=== PATIENT | female | born 1975 | race Caucasian/White ===

== ENCOUNTER 2022-05-28 04:22 | Day surgery (SDC) | payer OTHER ==
[2022-05-23 15:13] VITALS: BMI 36.6
[2022-05-28] MEDS ORDERED: LIDOCAINE HCL 1%, 10 MG/ML (20ML VIAL) INF ONE ×2 (10:57)
[2022-05-28] MEDS ORDERED: ceFAZolin 2 GRAM PREMIX BAG IVPB ONE (10:57)
[2022-05-28] MEDS ORDERED: ACETAMINOPHEN 325 MG TABLET (FP) PO PRN (11:03)
[2022-05-28] MEDS ORDERED: ONDANSETRON 4 MG/2 ML VIAL IVPUSH PRN (11:03)
[2022-05-28] MEDS ORDERED: oxyCODONE HCL 5 MG TABLET PO PRN (11:03)
[2022-05-28] MEDS ORDERED: PROPOFOL 60 ML ONE (11:05)
[2022-05-28] MEDS ORDERED: MIDAZOLAM HCL 2 MG/2 ML SINGLE DOSE VIAL ONE (11:05)
[2022-05-28] MEDS ORDERED: LACTATED RINGERS SOLUTION 1,000 ML IV SCH (11:15)
[2022-05-28] MEDS ORDERED: DEXAMETHASONE SOD PHOSPHATE 4 MG/1 ML VIAL ONE (11:17)
[2022-05-28] MEDS ORDERED: KETOROLAC TROMETHAMINE 30 MG/1 ML VIAL ONE (11:17)
[2022-05-28] MEDS ORDERED: ONDANSETRON 4 MG/2 ML VIAL ONE (11:17)
[2022-05-28] MEDS ORDERED: LIDOCAINE HCL 1%, 10 MG/ML (20ML VIAL) ONE (11:19)
[2022-05-28] MEDS ORDERED: ceFAZolin SODIUM 1 GM VIAL ONE ×2 (11:20)
[2022-05-28] MEDS ORDERED: oxyCODONE HCL 5 MG TABLET ONE (13:26)
[2022-05-28 14:16] VITALS: BP 114/67; PULSE 64; RESP 18; TEMP 98
== END 2022-05-28 14:05 | disposition home or self-care (01) ==
LOC: JASU-SURG 04:22 → EDBD 10:15 → JASU-SURG 14:05
PROVIDERS: ATTEND Surgery
PROC: 0HBT0ZX Excision of Right Breast, Open Approach, Diagnostic (ICD-10-PCS; principal; 2022-05-28 10:00)
DX: D24.1 Benign neoplasm of right breast (principal)
CPT/HCPCS: 19281; 76098-TC-FY; 81025; 88307-TC